=== PATIENT | female | born 1970 | race Caucasian/White ===

== ENCOUNTER 2016-12-07 08:59 | Emergency (ER) | payer OTHER ==
[~2016-12-07] VITALS: Ht 154.9 cm; Wt 59.0 kg
[~2016-12-07 08:59] MED LIST: MELO15TA2 PO; MSIR15 PO; RANI150 PO; [UNRECOGNIZED DRUG - CODE] PO
[2016-12-07 09:02] VITALS: BP 128/95; PULSE 120; RESP 22; TEMP 97.7; O2SAT 99
[2016-12-07 09:11] VITALS: BP 144/73; PULSE 104; RESP 18; TEMP 98.2; O2SAT 100
[2016-12-07] MEDS ORDERED: MOBI15TA PO (09:20)
[2016-12-07] MEDS ORDERED: FENT75DI T-DERMAL (09:20)
[2016-12-07] MEDS ORDERED: DESI100T PO (09:20)
[2016-12-07] MEDS ORDERED: BIRTH CONTROL PO (09:20)
[2016-12-07] MEDS ORDERED: SODIUM CHLORIDE 0.9% FLUSH 10 ML FLUSH IVF PRN (09:30)
--- NOTE | 2016-12-07 09:34 | PD ---
HPI Chief Complaint: Chest Pain Time Seen by Provider: 09:27 Travel History International Travel<30 days: No Contact w/Intl Traveler<30days: No Traveled to known affect area: No History of Present Illness HPI 46-year-old female with history of no significant past medical issues, presents to the ER today because of sudden onset of chest tightness which she measures it a 10 out of 10, felt like squeezing, shortness of breath, and lasted about 10 minutes and went away. She states that she is chest pain-free currently. She states that she had been evaluated for palpitations recently and had negative stress testing and workup including Holter monitor. She denies any previous history of similar chest discomfort. She does not have any previous history of cardiac issues. She does not know any triggers. She denies being more stressed out than usual, new medications, or any significant increase in caffeine intake. 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) Psychiatric: Yes (DEPRESSION) Reproductive: No Respiratory: No Thyroid Disease: No Influenza Vaccination: Yes ?: Not LMP: 11/30/2016 Tubal Ligation: Yes Past Surgical History Abdominal Surgery: No AICD: No Body Medical Devices: LUMBAR HARDWARE Gynecologic Surgery: Yes ( 1999 ) Joint Replacement: No Neurologic Surgery: Yes (LUMBAR FUSION 08/17/09) Pacemaker: No Other Surgery: Yes (SPINAL CORD STIMULATOR 2012) Social History Alcohol Use: Yes (VERY RARELY) Tobacco Use: No Substance Use: No Allergies-Medications (Allergen,Severity, Reaction): Coded Allergies: Celebrex (Verified Allergy, Intermediate, RASH, 12/07/16) Lyrica (Verified Allergy, Intermediate, Rash, 12/07/16) Prilosec (Verified Allergy, Intermediate, RASH, 12/07/16) Reported Meds & Prescriptions Reported Meds & Active Scripts Active Reported [ Control] Unknown Dose PO FLOR Fentanyl Patch 72 HR (Fentanyl) 75 Mcg/Hr Patch 75 Mcg T-DERMAL Q72H Remove old patch when new one placed. Mobic (Meloxicam) 15 Mg Tab 15 Mg PO HS Desipramine (Desipramine HCl) 100 Mg Tab 100 Mg PO HS Review of Systems Except as stated in HPI: all other systems reviewed are Neg Physical Exam Narrative GENERAL: Well-developed middle age white female patient currently not in acute distress. Awake and oriented 3. SKIN: Focused skin assessment warm/dry. HEAD: Atraumatic. Normocephalic. EYES: Pupils equal and round. No scleral icterus. No injection or drainage. ENT: No nasal bleeding or discharge. Mucous membranes pink and moist. NECK: Trachea midline. No JVD. CARDIOVASCULAR: Regular rate and rhythm. No murmur appreciated. Pulses are present and equal bilaterally. RESPIRATORY: No accessory muscle use. Clear to auscultation. Breath sounds equal bilaterally. GASTROINTESTINAL: Abdomen soft, non-tender, nondistended. Hepatic and splenic margins not palpable. MUSCULOSKELETAL: No obvious deformities. No clubbing. No cyanosis. No edema. NEUROLOGICAL: Awake and alert. No obvious cranial nerve deficits. Motor grossly within normal limits. Normal speech. PSYCHIATRIC: Appropriate mood and affect; insight and judgment normal. Data Data Last Documented VS Vital Signs Date Time Temp Pulse Resp B/P Pulse Ox O2 Delivery O2 Flow Rate FiO2 12/07/16 09:11 98.2 104 18 144/73 100 Orders Electrocardiogram (12/07/16:27) Ckmb (Isoenzyme) Profile (12/07/16 09:27) Complete Blood Count With Diff (12/07/16 09:27) Comprehensive Metabolic Panel (12/07/16:27) D-Dimer (12/07/16:27) Magnesium (Mg) (12/07/16:27) Prothrombin Time / Inr (Pt) (12/07/16:27) Act Partial Throm Time (Ptt) (12/07/16:27) Troponin I (12/07/16:27) Chest, Single Ap (12/07/16:27) Ecg Monitoring (12/07/16:27) Bilateral Bp Monitoring (12/07/16:27) Iv Access Insert/Monitor (12/07/16:27) Oximetry (12/07/16:27) Oxygen Administration (12/07/16:27) Sodium Chloride 0.9% Flush (Ns Flush) (12/07/16 09:30) Ed Urine Pregnancytest Poc (12/07/16 09:27) Ckmb (Isoenzyme) Profile (12/07/16 10:25) Troponin I (12/07/16 10:25) Labs Laboratory Tests Test 12/07/16 12/07/16 09:34 11:30 White Blood Count 5.1 TH/MM3 Red Blood Count 4.42 MIL/MM3 Hemoglobin 12.4 GM/DL Hematocrit 37.3 % Mean Corpuscular Volume 84.5 FL Mean Corpuscular Hemoglobin 28.0 PG Mean Corpuscular Hemoglobin 33.2 % Concent Red Cell Distribution Width 13.6 % Platelet Count 215 TH/MM3 Mean Platelet Volume 7.8 FL Neutrophils (%) (Auto) 62.7 % Lymphocytes (%) (Auto) 30.9 % Monocytes (%) (Auto) 5.4 % Eosinophils (%) (Auto) 0.8 % Basophils (%) (Auto) 0.2 % Neutrophils # (Auto) 3.2 TH/MM3 Lymphocytes # (Auto) 1.6 TH/MM3 Monocytes # (Auto) 0.3 TH/MM3 Eosinophils # (Auto) 0.0 TH/MM3 Basophils # (Auto) 0.0 TH/MM3 CBC Comment DIFF FINAL Differential Comment Prothrombin Time 10.1 SEC Prothromb Time International 0.9 RATIO Ratio Activated Partial 25.3 SEC Thromboplast Time D-Dimer Quantitative (PE/DVT) 0.33 MG/L FEU Sodium Level 138 MEQ/L Potassium Level 3.5 MEQ/L Chloride Level 103 MEQ/L Carbon Dioxide Level 25.9 MEQ/L Anion Gap 9 MEQ/L Blood Urea Nitrogen 13 MG/DL Creatinine 0.91 MG/DL Estimat Glomerular Filtration 67 ML/MIN Rate Random Glucose 97 MG/DL Calcium Level 8.5 MG/DL Magnesium Level 2.2 MG/DL Total Bilirubin 0.3 MG/DL Aspartate Amino Transf 26 U/L (AST/SGOT) Alanine Aminotransferase 24 U/L (ALT/SGPT) Alkaline Phosphatase 79 U/L Total Creatine Kinase 73 U/L 64 U/L Troponin I LESS THAN 0.02 LESS THAN 0.02 NG/ML NG/ML Total Protein 7.5 GM/DL Albumin 3.6 GM/DL MDM Medical Decision Making Medical Screen Exam Complete: Yes Emergency Medical Condition: Yes Medical Record Reviewed: Yes Interpretation(s) EKG shows NSR, no ST elevation or depression, and no arrhythmias. No significant T-wave inversions. Laboratory Tests Test 12/07/16 12/07/16 09:34 11:30 Estimat Glomerular Filtration 67 ML/MIN (>89) Rate Troponin I LESS THAN 0.02 LESS THAN 0.02 NG/ML NG/ML (0.02-0.05) (0.02-0.05) Last 24 hours Impressions Chest X-Ray 12/07/16926 Signed Impressions: Service Date/Time: Wednesday, December 07, 2016 09:26 - CONCLUSION: 1. 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 2. Otherwise negative. Lungs are clear. Siddharth Guy MD Differential Diagnosis Chest tightnessdysrhythmias versus ACS versus anxiety attack versus electrolyte abnormalities Narrative Course Chest pain completely resolved in the ER. Lab work and cardiac enzymes initially negative. I have talked to the patient regarding findings and patient states that she has had a full workup done just last month. Second set was done which was also negative. At this point, have talked her regarding findings and have offered to admit her as an observation for further evaluation a chest pain and chest pain center. She is declining at this point stating that she has had a full workup and has a staff forester. She should follow-up with her staff forester for this issue. She should return for any worsening in symptoms. We have talked about the fact that I cannot fully diagnose the cause of this chest pain. Patient states understanding. The plan has been discussed with patient and she states understanding. Diagnosis Primary Impression: Chest pain Disposition: 01 DISCHARGE HOME Condition: Stable Adriana Gonzalez MD Dec 07, 2016 09:34
[2016-12-07 09:49] LABS: AUTOMATED NEUTROPHIL # 3.2 TH/MM3 (1.8-7.7); BASOPHIL % 0.2 % (0.0-2.0); EOSINOPHIL % 0.8 % (0.0-4.0); HEMATOCRIT 37.3 % (35.0-46.0); HEMO FLAGS DIFF FINAL; LYMPH % 30.9 % (9.0-44.0); LYMPHOCYTE # 1.6 TH/MM3 (1.0-4.8); MEAN CELL VOLUME 84.5 FL (80.0-100.0); MEAN CORPUSCULAR HGB CONC 33.2 % (32.0-36.0); MONO % 5.4 % (0.0-8.0); NEUT % 62.7 % (16.0-70.0); PLATELET COUNT 215 TH/MM3 (150-450); RED BLOOD COUNT 4.42 MIL/MM3 (4.00-5.30); RED CELL DISTRIBUTION WIDTH 13.6 % (11.6-17.2); WHITE BLOOD COUNT 5.1 TH/MM3 (4.0-11.0)
--- NOTE | 2016-12-07 10:00 | RADRPT ---
EXAM DATE/TIME: 12/07/2016 09:26 [facility] COMPARISON: No previous studies available for comparison. INDICATIONS : Chest pain with shortness of breath. MEDICAL HISTORY : None. SURGICAL HISTORY : None. ENCOUNTER: Initial ACUITY: 1 day PAIN SCORE: 4/10 LOCATION: Bilateral chest FINDINGS: A single view of the chest demonstrates the lungs to be symmetrically aerated without evidence of mas s, infiltrate or effusion. The cardiomediastinal contours are unremarkable. Osseous structures are intact with an osseous bridge between the first and second ribs anteriorly on the right. CONCLUSION: 1. 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 2. Otherwise negative. Lungs are clear. Siddharth Guy MD on December 07, 2016 at 9:57 Board Certified Radiologist. This report was verified electronically.
[2016-12-07 10:05] LABS: APTT (PATIENT) 25.3 SEC (24.3-30.1); INTERNATIONAL NORMALIZED RATIO 0.9 RATIO; PROTHROMBIN TIME - PATIENT 10.1 SEC (9.8-11.6)
[2016-12-07 10:06] LABS: ALT (GPT) 24 U/L (10-53); ANION GAP 9 MEQ/L (5-15); AST (GOT) 26 U/L (15-37); BICARBONATE 25.9 MEQ/L (21.0-32.0); BLOOD UREA NITROGEN 13 MG/DL (7-18); CHLORIDE 103 MEQ/L (98-107); GLOMERULAR FILTRATION RATE 67 ML/MIN (>89); MAGNESIUM 2.2 MG/DL (1.5-2.5); POTASSIUM 3.5 MEQ/L (3.5-5.1); SODIUM (NA) 138 MEQ/L (136-145)
[2016-12-07 10:11] LABS: ALKALINE PHOSPHATASE 79 U/L (45-117); TOTAL BILIRUBIN ADULT 0.3 MG/DL (0.2-1.0)
[2016-12-07 10:12] LABS: CREATINE KINASE 73 U/L (26-192)
[2016-12-07 12:11] LABS: CREATINE KINASE 64 U/L (26-192)
--- NOTE | 2016-12-07 18:50 | EKG ---
Date Performed: 12/07/2016 Time Performed: 09:16:37 PTAGE: 46 years EKG: SINUS TACHYCARDIA ABNORMAL RHYTHM ECG INTERPRETATION BASED ON A DEFAULT AGE OF 40 YEARS Com pared to prior tracing no significant change PREVIOUS TRACING : 10/29/2012 08.14 DOCTOR: Jaison Wing Interpretating Date/Time 12/07/2016 18:49:02
== END 2016-12-07 13:27 | disposition home or self-care (01) ==
LOC: NEPE 08:59
DX: R07.9 Chest pain, unspecified (principal); K21.9 Gastro-esophageal reflux disease without esophagitis; R94.31 Abnormal electrocardiogram [ECG] [EKG]
CPT/HCPCS: 71010; 80053; 82550; 83735; 84484; 84703; 85025; 85379; 85610; 85730; 93005

== ENCOUNTER → 2017-01-03 | Outpatient (CLI) | payer OTHER ==
[~2017-01-03] MED LIST changes: +BIRTH CONTROL PO; +DESI100T PO; +FENT75DI T-DERMAL; -MELO15TA2 PO; +MOBI15TA PO; -MSIR15 PO; -RANI150 PO; -[UNRECOGNIZED DRUG - CODE] PO
[2017-01-03 10:26] LABS: BETA HCG QUANT LESS THAN 1 MIU/ML (0-5)
== END ==
LOC: CLAB 09:10
PROVIDERS: ATTEND Nuclear Medicine Nuclear Cardiology
DX: R07.89 Other chest pain (principal); Z79.899 Other long term (current) drug therapy
CPT/HCPCS: 36415; 84702

== ENCOUNTER → 2017-01-23 | Outpatient (CLI) | payer OTHER ==
[2017-01-23 07:42] LABS: AUTOMATED NEUTROPHIL # 1.9 TH/MM3 (1.8-7.7); BASOPHIL % 0.6 % (0.0-2.0); EOSINOPHIL # 0.1 TH/MM3 (0-0.4); EOSINOPHIL % 2.5 % (0.0-4.0); HEMO FLAGS DIFF FINAL; LYMPH % 42.2 % (9.0-44.0); LYMPHOCYTE # 1.8 TH/MM3 (1.0-4.8); MEAN CELL VOLUME 85.4 FL (80.0-100.0); MEAN CORPUSCULAR HGB CONC 32.8 % (32.0-36.0); MONO % 9.7 % (0.0-8.0); PLATELET COUNT 249 TH/MM3 (150-450); RED BLOOD COUNT 4.21 MIL/MM3 (4.00-5.30); WHITE BLOOD COUNT 4.3 TH/MM3 (4.0-11.0)
[2017-01-23 08:04] LABS: ANION GAP 8 MEQ/L (5-15); AST (GOT) 10 U/L (15-37); BLOOD UREA NITROGEN 12 MG/DL (7-18); CHLORIDE 104 MEQ/L (98-107); GLOMERULAR FILTRATION RATE 68 ML/MIN (>89); GLUCOSE,FASTING 89 MG/DL (74-99); POTASSIUM 3.4 MEQ/L (3.5-5.1); SODIUM (NA) 139 MEQ/L (136-145)
[2017-01-23 08:05] LABS: ALT (GPT) 19 U/L (10-53)
[2017-01-23 08:07] LABS: ALKALINE PHOSPHATASE 56 U/L (45-117); LDL CHOLESTEROL 156 MG/DL (0-99); TOTAL BILIRUBIN ADULT 0.3 MG/DL (0.2-1.0)
== END ==
LOC: CLAB 07:20
PROVIDERS: ATTEND Family Medicine
DX: R07.89 Other chest pain (principal); E78.5 Hyperlipidemia, unspecified
CPT/HCPCS: 36415; 80053; 80061; 85025

== ENCOUNTER → 2017-02-05 | Outpatient (CLI) | payer OTHER | LOC: CLAB 15:02 | PROVIDERS: ATTEND Family Medicine | DX: R07.89 Other chest pain (principal) | CPT/HCPCS: 82272 ==

== ENCOUNTER → 2017-03-21 | Outpatient (CLI) | payer OTHER ==
[~2017-03-21] VITALS: Ht 154.9 cm; Wt 59.3 kg
[~2017-03-21] MED LIST changes: -BIRTH CONTROL PO; +CHLORHEXIDINE GLUCONATE 2 % 1 PACK (2 CLOTHS) TOPICAL PRN; +INSULIN HUMAN REGULAR 1,000 UNITS/10 ML VIAL SQ PRN; +LACTATED RINGER'S 1000 ML IV PRN; +LEVO1TAB PO; +METOPROLOL TARTRATE 25 MG TAB PO PRN; +POVIDONE IODINE 5% (ANTISEPSIS KIT) 4 APPLICATIONS EACH NARE PRN; +PROPOFOL 200 MG/20 ML AMP IV ONE; +SODIUM CHLORID 0.9% 500 ML IV PRN; +ZANT150T2 PO
[2017-03-21 10:24] VITALS: BP 118/79; PULSE 81; RESP 20; TEMP 98.6; O2SAT 100
[2017-03-21 12:16] VITALS: TEMP 97.6
--- NOTE | 2017-03-21 12:22 | GIPROC ---
[facility] [address] [facility]. [facility], [address] EGD PROCEDURE REPORT EXAM DATE: 03/21/2017 PATIENT NAME: Talia Thomas MR#: [id number] BIRTHDATE: 1970 STATUS: outpatient ATTENDING: Sun Wan MD VISIT ID: [id number] KENNEL HELPER: Monika Matt Dan ORDER #: [id number] INDICATIONS: The patient is a 46 yr old female here for an EGD due to history of esophageal reflux and atypical chest pain. PROCEDURE PERFORMED: EGD w/ biopsy MEDICATIONS: None and Per Anesthesia. ASA CLASS: Class I PHYSICAL EXAM: normal CONSENT: The patient understands the risks and benefits of the procedure and understands that these risks include, but are not limited to: sedation, allergic reaction, infection, perforation and/or bleeding. Alternative means of evaluation and treatment include, among others: physical exam, x-rays, and/or surgical intervention. The patient elects to proceed with this endoscopic procedure. DESCRIPTION OF PROCEDURE: for proper function. Hand hygiene and appropriate measures for infection prevention was taken. After the risks, benefits and alternatives of the procedure were thoroughly explained, Informed consent was verified, confirmed and timeout was successfully executed by the treatment team. The Helicomm [id number] endoscope was introduced through the mouth and advanced to the second portion of the duodenum. The instrument was slowly withdrawn as the mucosa was fully examined. ESOPHAGUS: The mucosa of the esophagus appeared normal. A biopsy was performed using cold forceps. Sample sent for histology. Sample obtained for evaluation of eosinophilic esophagitis. STOMACH: There was mild gastritis in the gastric antrum. Multiple biopsies were performed using cold forceps. Sample obtained for helicobacter pylori testing. DUODENUM: The duodenal mucosa appeared normal in the duodenal bulb and 2nd part duodenum. Retroflexed views revealed a hiatal hernia The gastroscope was then slowly withdrawn and removed. COMPLICATIONS: There were no complications. IMPRESSIONS: 1. The esophagus appeared normal; biopsy was performed 2. There was mild gastritis in the gastric antrum; multiple biopsies were performed 3. Normal duodenal mucosa in the duodenal bulb and 2nd part duodenum 4. Retroflexed views revealed a hiatal hernia RECOMMENDATIONS: 1. Await biopsy results. Biopsy results will not be ready for 7-10 days. If you don't hear from us in two weeks, call our office for biopsy results. 2. Anti-reflux regimen 3. Continue PPI 4. Avoid NSAIDS PATIENT CONDITION: stable DISPOSITION: Home REPEAT EXAM: NONE Sun Wan MD eSigned: Sun Wan MD 03/21/2017 12:21 PM cc: PATIENT NAME: Talia Thomas MR#: [id number]
[2017-03-21 12:35] VITALS: BP 113/66; PULSE 71; RESP 18
== END ==
LOC: HEND 09:55
PROVIDERS: ATTEND Internal Medicine Gastroenterology
DX: K29.50 Unspecified chronic gastritis without bleeding (principal); K44.9 Diaphragmatic hernia without obstruction or gangrene; R07.89 Other chest pain
CPT/HCPCS: 88305; 88312

== ENCOUNTER → 2017-06-12 | Outpatient (CLI) | payer OTHER ==
[~2017-06-12] MED LIST changes: -CHLORHEXIDINE GLUCONATE 2 % 1 PACK (2 CLOTHS) TOPICAL PRN; -INSULIN HUMAN REGULAR 1,000 UNITS/10 ML VIAL SQ PRN; -LACTATED RINGER'S 1000 ML IV PRN; -METOPROLOL TARTRATE 25 MG TAB PO PRN; -POVIDONE IODINE 5% (ANTISEPSIS KIT) 4 APPLICATIONS EACH NARE PRN; -PROPOFOL 200 MG/20 ML AMP IV ONE; -SODIUM CHLORID 0.9% 500 ML IV PRN
[2017-06-12 09:31] LABS: ALBUMIN 3.4 GM/DL (3.4-5.0); AST (GOT) 11 U/L (15-37); BICARBONATE 25.7 MEQ/L (21.0-32.0); BLOOD UREA NITROGEN 14 MG/DL (7-18); CALCIUM 8.6 MG/DL (8.5-10.1); CHLORIDE 105 MEQ/L (98-107); CREATININE 0.87 MG/DL (0.50-1.00); GLOMERULAR FILTRATION RATE 70 ML/MIN (>89); GLUCOSE,FASTING 91 MG/DL (74-99); SODIUM (NA) 137 MEQ/L (136-145)
[2017-06-12 09:32] LABS: ALT (GPT) 15 U/L (10-53)
[2017-06-12 09:34] LABS: ALKALINE PHOSPHATASE 61 U/L (45-117); TOTAL BILIRUBIN ADULT 0.2 MG/DL (0.2-1.0); TOTAL PROTEIN 7.1 GM/DL (6.4-8.2)
== END ==
LOC: CLAB 08:42
PROVIDERS: ATTEND Family Medicine
DX: K21.9 Gastro-esophageal reflux disease without esophagitis (principal); E78.5 Hyperlipidemia, unspecified; E78.6 Lipoprotein deficiency
CPT/HCPCS: 36415; 80053

== ENCOUNTER 2017-07-17 10:05 | Emergency (ER) | payer OTHER ==
[~2017-07-17] VITALS: Ht 154.9 cm; Wt 59.0 kg
[2017-07-17 10:06] VITALS: BP 127/71; PULSE 132; RESP 20; TEMP 97.7; O2SAT 100
[2017-07-17] MEDS ORDERED: SODIUM CHLOR 0.9% 1000 ML INJ 1,000 ML IV SCH (10:26)
[2017-07-17] MEDS ORDERED: ONDANSETRON HCL 4 MG/2 ML VIAL IVP ONE (10:30)
--- NOTE | 2017-07-17 10:49 | PD ---
HPI . Abdominal pain Chief Complaint: Abdominal Pain Time Seen by Provider: 10:19 Travel History International Travel<30 days: No Contact w/Intl Traveler<30days: No Traveled to known affect area: No History of Present Illness HPI 47 year old female presents to the emergency department for evaluation of an exacerbation of right sided abdominal pain x 2 days. Patient has had intermittent abdominal pain for the last several months. Patient had an ultrasound to evaluated her gallbladder 2 weeks ago at [facility]. She is unsure of the results at this time. Patient was sent home from work on Saturday with chest pain and abdominal pain. Patient denies any fever, chills, malaise. Patient denies any nausea, vomiting or diarrhea, despite the right sided abdominal pain being persistent. Patient's only other major medical history is hyperlipemia and chronic back pain. PFSH Past Medical History Blood Disorders: No Cancer: No Cardiovascular Problems: No Diabetes: No Endocrine: No Gastrointestinal Disorders: Yes (GERD) GERD: Yes Genitourinary: No Headaches: Yes Hepatitis: No Hiatal Hernia: No Immune Disorder: No Musculoskeletal: Yes (ARTHRITIS, BACK PAIN) Neurologic: Yes (NERVE DAMAGE TO LOWER BACK) Psychiatric: Yes (DEPRESSION) Reproductive: No Respiratory: No Thyroid Disease: No ?: Not LMP: 07/12/17 Tubal Ligation: Yes Past Surgical History Abdominal Surgery: No AICD: No Body Medical Devices: LUMBAR HARDWARE Gynecologic Surgery: Yes ( 1999 ) Joint Replacement: No Neurologic Surgery: Yes (LUMBAR FUSION 08/17/09) Pacemaker: No Other Surgery: Yes (SPINAL CORD STIMULATOR 2012) Social History Alcohol Use: Yes (VERY RARELY) Tobacco Use: No Substance Use: No Allergies-Medications (Allergen,Severity, Reaction): Coded Allergies: celecoxib (Unverified Allergy, Intermediate, RASH, 04/02/17) omeprazole (Unverified Allergy, Intermediate, RASH, 04/02/17) pregabalin (Unverified Allergy, Intermediate, Rash, 04/02/17) gabapentin (Unverified Adverse Reaction, Mild, fatigue, 04/02/17) Reported Meds & Prescriptions Reported Meds & Active Scripts Active Reported Falmina (Levonorgestrel-Ethinyl Estradiol) 0.1-20 mg-mcg Tab 1 Tab PO DAILY Zantac (Ranitidine HCl) 150 Mg Tab 150 Mg PO BID Fentanyl Patch 72 HR (Fentanyl) 75 Mcg/Hr Patch 75 Mcg T-DERMAL Q72H Remove old patch when new one placed. Mobic (Meloxicam) 15 Mg Tab 15 Mg PO HS Desipramine (Desipramine HCl) 100 Mg Tab 100 Mg PO HS Review of Systems Except as stated in HPI: all other systems reviewed are Neg Physical Exam Narrative GENERAL: Well-nourished, well-developed 47 year old female patient in no acute distress. Nontoxic appearing. SKIN: Focused skin assessment warm/dry. HEAD: Normocephalic. Atraumatic. EYES: No scleral icterus. No injection or drainage. NECK: Supple, trachea midline. No JVD or lymphadenopathy. CARDIOVASCULAR: Regular rate and rhythm without murmurs, gallops, or rubs. RESPIRATORY: Breath sounds equal bilaterally. No accessory muscle use. GASTROINTESTINAL: Abdomen soft, right-sided abdominal tenderness with palpation , abdomen nondistended. MUSCULOSKELETAL: No cyanosis, or edema. BACK: Nontender without obvious deformity. No CVA tenderness. Data Data Last Documented VS Vital Signs Date Time Temp Pulse Resp B/P (MAP) Pulse Ox O2 Delivery O2 Flow Rate FiO2 07/17/17 13:01 95 17 117/60 (79) 100 Room Air 07/17/17 10:06 97.7 Orders Orders Complete Blood Count With Diff (07/17/17 10:26) Comprehensive Metabolic Panel (07/17/17 10:26) Lipase (07/17/17 10:26) Urinalysis - C+S If Indicated (07/17/17 10:26) Ct Abd/Pel W Iv Contrast(Rout) (07/17/17 10:26) Iv Access Insert/Monitor (07/17/17 10:26) Ecg Monitoring (07/17/17 10:26) NPO (07/17/17 10:26) Ondansetron Inj (Zofran Inj) (07/17/17 10:30) Sodium Chlor 0.9% 1000 Ml Inj (Ns 1000 M (07/17/17 10:26) Ed Urine Pregnancytest Poc (07/17/17 10:26) Electrocardiogram (07/17/17 10:30) Creatine Kinase (Cpk) (07/17/17 10:30) Troponin I (07/17/17 10:30) Urine Culture (07/17/17 10:50) Iohexol 350 Inj (Omnipaque 350 Inj) (07/17/17 12:42) Labs Laboratory Tests Test 07/17/17 10:39 07/17/17 10:50 White Blood Count 8.4 TH/MM3 Red Blood Count 4.71 MIL/MM3 Hemoglobin 12.4 GM/DL Hematocrit 37.9 % Mean Corpuscular Volume 80.5 FL Mean Corpuscular Hemoglobin 26.3 PG Mean Corpuscular Hemoglobin Concent 32.7 % Red Cell Distribution Width 16.1 % Platelet Count 252 TH/MM3 Mean Platelet Volume 8.0 FL Neutrophils (%) (Auto) 77.6 % Lymphocytes (%) (Auto) 14.3 % Monocytes (%) (Auto) 6.1 % Eosinophils (%) (Auto) 1.9 % Basophils (%) (Auto) 0.1 % Neutrophils # (Auto) 6.5 TH/MM3 Lymphocytes # (Auto) 1.2 TH/MM3 Monocytes # (Auto) 0.5 TH/MM3 Eosinophils # (Auto) 0.2 TH/MM3 Basophils # (Auto) 0.0 TH/MM3 CBC Comment DIFF FINAL Differential Comment Blood Urea Nitrogen 12 MG/DL Creatinine 1.02 MG/DL Random Glucose 102 MG/DL Total Protein 8.6 GM/DL Albumin 3.8 GM/DL Calcium Level 8.9 MG/DL Alkaline Phosphatase 197 U/L Aspartate Amino Transf (AST/SGOT) 37 U/L Alanine Aminotransferase (ALT/SGPT) 105 U/L Total Bilirubin 0.7 MG/DL Sodium Level 136 MEQ/L Potassium Level 3.4 MEQ/L Chloride Level 102 MEQ/L Carbon Dioxide Level 27.6 MEQ/L Anion Gap 6 MEQ/L Estimat Glomerular Filtration Rate 58 ML/MIN Total Creatine Kinase 34 U/L Troponin I LESS THAN 0.02 NG/ML Lipase 87 U/L Urine Color DARK-BROWN Urine Turbidity CLOUDY Urine pH 6.0 Urine Specific [place] 1.035 Urine Protein 100 mg/dL Urine Glucose (UA) 70 mg/dL Urine Ketones 10 mg/dL Urine Occult Blood MOD Urine Nitrite NEG Urine Bilirubin NEG Urine Urobilinogen 4.0 MG/DL Urine Leukocyte Esterase LARGE Urine RBC 25 /hpf Urine WBC /hpf Urine Squamous Epithelial Cells 20 /hpf Urine Bacteria OCC /hpf Urine Hyaline Casts 7 /lpf Urine Mucus MANY /lpf Microscopic Urinalysis Comment CULTURE INDICATED MDM Medical Decision Making Medical Screen Exam Complete: Yes Emergency Medical Condition: Yes Differential Diagnosis Differential diagnoses include but not limited to cholecystitis, gastroenteritis , appendicitis, cholelithiasis Narrative Course 47-year-old female presents emergency department for evaluation of right-sided abdominal pain 2 days. Patient states she had chest pain on Saturday but the pain has resolved subsequently. IV obtained and blood work sent to the lab. UA obtained and sent to lab. EKG obtained. Abd CT ordered. US from [facility] obtained and reviewed. Jimena Clark NP assumes care of this patient. Please see her documentation for further details and disposition. Dipika Torres Jul 17, 2017 10:49
[2017-07-17 11:12] LABS: AUTOMATED NEUTROPHIL # 6.5 TH/MM3 (1.8-7.7); BASOPHIL % 0.1 % (0.0-2.0); EOSINOPHIL # 0.2 TH/MM3 (0-0.4); EOSINOPHIL % 1.9 % (0.0-4.0); HEMATOCRIT 37.9 % (35.0-46.0); HEMO FLAGS DIFF FINAL; LYMPH % 14.3 % (9.0-44.0); LYMPHOCYTE # 1.2 TH/MM3 (1.0-4.8); MEAN CELL VOLUME 80.5 FL (80.0-100.0); MEAN CORPUSCULAR HEMOGLOBIN 26.3 PG (27.0-34.0); MEAN CORPUSCULAR HGB CONC 32.7 % (32.0-36.0); MONO % 6.1 % (0.0-8.0); NEUT % 77.6 % (16.0-70.0); PLATELET COUNT 252 TH/MM3 (150-450); RED BLOOD COUNT 4.71 MIL/MM3 (4.00-5.30); RED CELL DISTRIBUTION WIDTH 16.1 % (11.6-17.2); WHITE BLOOD COUNT 8.4 TH/MM3 (4.0-11.0)
[2017-07-17 11:26] LABS: BLOOD, URINE MOD (NEG); COMMENT (UR) CULTURE INDICATED; CULTURE IF INDICATED CULTURE INDICATED; GLUCOSE,URINE 70 mg/dL (NEG); HYALINE CAST, URINE 7 /lpf (RARE); KETONE, URINE 10 mg/dL (NEG); MUCUS URINE MANY /lpf (OCC); NITRITE,URINE NEG (NEG); SQUAMOUS EPITHELIAL CELL URINE 20 /hpf (0-5); URINE COLOR DARK-BROWN (YELLW/STRAW)
[2017-07-17 11:27] LABS: BACTERIA, URINE OCC /hpf
[2017-07-17 11:30] LABS: ANION GAP 6 MEQ/L (5-15); AST (GOT) 37 U/L (15-37); BICARBONATE 27.6 MEQ/L (21.0-32.0); BLOOD UREA NITROGEN 12 MG/DL (7-18); CHLORIDE 102 MEQ/L (98-107); GLOMERULAR FILTRATION RATE 58 ML/MIN (>89); POTASSIUM 3.4 MEQ/L (3.5-5.1); SODIUM (NA) 136 MEQ/L (136-145)
[2017-07-17 11:31] LABS: ALT (GPT) 105 U/L (10-53)
[2017-07-17 11:33] LABS: ALKALINE PHOSPHATASE 197 U/L (45-117); TOTAL BILIRUBIN ADULT 0.7 MG/DL (0.2-1.0)
[2017-07-17 11:37] LABS: CREATINE KINASE 34 U/L (26-192)
[2017-07-17 12:17] VITALS: BP 100/56; PULSE 71; RESP 17; O2SAT 100
--- NOTE | 2017-07-17 12:19 | PD ---
Physical Exam Time Seen by Provider: 12:18 Narrative 1219: I assumed patient care at this time. Report received from JANNA Good. See her note for initial assessment and care. Data Data Last Documented VS Vital Signs Date Time Temp Pulse Resp B/P (MAP) Pulse Ox O2 Delivery O2 Flow Rate FiO2 07/17/17 15:56 89 17 107/67 (80) 100 Room Air 07/17/17 10:06 97.7 Orders Orders Complete Blood Count With Diff (07/17/17 10:26) Comprehensive Metabolic Panel (07/17/17 10:26) Lipase (07/17/17 10:26) Urinalysis - C+S If Indicated (07/17/17 10:26) Ct Abd/Pel W Iv Contrast(Rout) (07/17/17 10:26) Iv Access Insert/Monitor (07/17/17 10:26) Ecg Monitoring (07/17/17 10:26) NPO (07/17/17 10:26) Ondansetron Inj (Zofran Inj) (07/17/17 10:30) Sodium Chlor 0.9% 1000 Ml Inj (Ns 1000 M (07/17/17 10:26) Ed Urine Pregnancytest Poc (07/17/17 10:26) Electrocardiogram (07/17/17 10:30) Creatine Kinase (Cpk) (07/17/17 10:30) Troponin I (07/17/17 10:30) Urine Culture (07/17/17 10:50) Iohexol 350 Inj (Omnipaque 350 Inj) (07/17/17 12:42) Morphine Inj (Morphine Inj) (07/17/17 16:00) Piperacil-Tazo 3.375 Gm Premix (Zosyn 3. (07/17/17 16:15) Ed Discharge Order (07/17/17 16:16) Labs Laboratory Tests Test 07/17/17 10:39 07/17/17 10:50 White Blood Count 8.4 TH/MM3 Red Blood Count 4.71 MIL/MM3 Hemoglobin 12.4 GM/DL Hematocrit 37.9 % Mean Corpuscular Volume 80.5 FL Mean Corpuscular Hemoglobin 26.3 PG Mean Corpuscular Hemoglobin Concent 32.7 % Red Cell Distribution Width 16.1 % Platelet Count 252 TH/MM3 Mean Platelet Volume 8.0 FL Neutrophils (%) (Auto) 77.6 % Lymphocytes (%) (Auto) 14.3 % Monocytes (%) (Auto) 6.1 % Eosinophils (%) (Auto) 1.9 % Basophils (%) (Auto) 0.1 % Neutrophils # (Auto) 6.5 TH/MM3 Lymphocytes # (Auto) 1.2 TH/MM3 Monocytes # (Auto) 0.5 TH/MM3 Eosinophils # (Auto) 0.2 TH/MM3 Basophils # (Auto) 0.0 TH/MM3 CBC Comment DIFF FINAL Differential Comment Blood Urea Nitrogen 12 MG/DL Creatinine 1.02 MG/DL Random Glucose 102 MG/DL Total Protein 8.6 GM/DL Albumin 3.8 GM/DL Calcium Level 8.9 MG/DL Alkaline Phosphatase 197 U/L Aspartate Amino Transf (AST/SGOT) 37 U/L Alanine Aminotransferase (ALT/SGPT) 105 U/L Total Bilirubin 0.7 MG/DL Sodium Level 136 MEQ/L Potassium Level 3.4 MEQ/L Chloride Level 102 MEQ/L Carbon Dioxide Level 27.6 MEQ/L Anion Gap 6 MEQ/L Estimat Glomerular Filtration Rate 58 ML/MIN Total Creatine Kinase 34 U/L Troponin I LESS THAN 0.02 NG/ML Lipase 87 U/L Urine Color DARK-BROWN Urine Turbidity CLOUDY Urine pH 6.0 Urine Specific [place] 1.035 Urine Protein 100 mg/dL Urine Glucose (UA) 70 mg/dL Urine Ketones 10 mg/dL Urine Occult Blood MOD Urine Nitrite NEG Urine Bilirubin NEG Urine Urobilinogen 4.0 MG/DL Urine Leukocyte Esterase LARGE Urine RBC 25 /hpf Urine WBC /hpf Urine Squamous Epithelial Cells 20 /hpf Urine Bacteria OCC /hpf Urine Hyaline Casts 7 /lpf Urine Mucus MANY /lpf Microscopic Urinalysis Comment CULTURE INDICATED MDM Supervised Visit with MARCO ANTONIO: Yes Narrative Course 1219: Urinalysis was signs of infection. CBC, CMP unremarkable. Troponin less than 0.02. Total CK 34. Patient had an ultrasound of the abdomen done at [facility] on July 04 which concluded cholelithiasis with multiple echogenic gallstones and mild gallbladder wall thickening; there is no evidence of biliary obstruction; liver is mildly prominent in size with no focal abnormality. The patient will be provided a copy of her ultrasound report from [facility]. CT abd/pelvis pending. 1300: CT abdomen/pelvis concludes: Abdomen/Pelvis CT 11/29/17 1026 Signed Impressions: Service Date/Time: Monday, July 17, 2017 12:26 - CONCLUSION: 1. Distended gallbladder with generalized wall thickening and pericholecystic fluid characteristics of acute cholecystitis. 2. No evidence of intrahepatic biliary duct or common bile duct distention. 3. No evidence of pancreatic mass. Babak Garrido MD CT findings discussed with the patient. 1541: Call out to general surgeon. 1551: Dr. Berkowitz spoke with Dr. Pritchard, general surgeon, and he recommended to administer Zosyn IV and for the patient to follow up outpatient. Zosyn ordered and administered in the ER. The patient was provided to Dr. Pritchard's information for follow-up. Instructed patient to call and make an appointment and she verbalized understanding and agreement. Patient sees pain management for chronic back pain and has fentanyl patch in place. Augmentin prescribed for home. Instructed patient to follow up with primary care provider. Patient verbalizes understanding and agreement with treatment plan. Patient is medically cleared and stable for discharge. Discussed reasons to return to the emergency department. Patient agrees with treatment plan. The patients vital signs are stable and the patient is stable for outpatient follow- up and treatment. Patient discharged home, stable and in no acute distress. Diagnosis Primary Impression: Acute cholecystitis Additional Impression: Urinary tract infection Qualified Codes: N39.0 - Urinary tract infection, site not specified Referrals: Blade Pritchard MD General Surgeon Primary Care Physician Patient Instructions: Biliary Colic (ED), General Instructions, Urinary Tract Infection in Women (ED) Additional Instruction: Antibiotics as prescribed Follow-up with Dr. Pritchard, general surgeon; his contact information is in her discharge instructions; call his office to make an appointment for follow-up Or follow up with general surgeon of choice Follow-up with primary care provider Return to the emergency department immediately with worsening of symptoms Med/Other Pt SpecificInfo: Prescription(s) given Scripts Amoxicillin-Clavulanate (Augmentin) 875-125 Mg Tab 1 TAB PO BID for Infection for 10 Days, #20 TAB 0 Refills Prov: Gia Clark 07/17/17 Disposition: 01 DISCHARGE HOME Condition: Stable Gia Clark Jul 17, 2017 12:19
--- NOTE | 2017-07-17 12:40 | EKG ---
Date Performed: 07/17/2017 Time Performed: 11:35:01 PTAGE: 47 years EKG: Sinus rhythm POSSIBLE LEFT ATRIAL ENLARGEMENT POSSIBLE RIGHT VENTRICULAR CONDUCTION DELAY BORDERLINE ECG INTERPRE TATION BASED ON A DEFAULT AGE OF 41 YEARS No significant change from prior electrocardiogram. DOCTOR: John Lewis Interpretating Date/Time 07/17/2017 12:38:54
[2017-07-17] MEDS ORDERED: IOHEXOL 350 MG/ML 10 ML VIAL (for RAD DIAG) IVCONTRAST ONE (12:42)
--- NOTE | 2017-07-17 12:52 | RADRPT ---
EXAM DATE/TIME: 07/17/2017 12:26 [facility] COMPARISON: No previous studies available for comparison. INDICATIONS : Right sided abdominal pain since Sourav. IV CONTRAST: 86 cc Omnipaque 350 (iohexol) IV ORAL CONTRAST: No oral contrast ingested. RADIATION DOSE: 4.64 CTDIvol (mGy) MEDICAL HISTORY : None SURGICAL HISTORY : section. Tubal ligation. ENCOUNTER: Initial ACUITY: 1 day PAIN SCALE: 5/10 LOCATION: Right abdomen TECHNIQUE: Volumetric scanning of the abdomen and pelvis was performed. Using automated exposure control and ad justment of the mA and/or kV according to patient size, radiation dose was kept as low as reasonably achievable to obtain optimal diagnostic quality images. DICOM format image data is available electro nically for review and comparison. FINDINGS: LOWER LUNGS: The visualized lower lungs are clear. LIVER: Homogeneous density without lesion. There is no dilation of the biliary tree. The gallbladder is distended and demonstrates diffuse wall thickening measuring 6-7 mm in thickn ess. There is significant surrounding fluid. There are no calcified gallstones. SPLEEN: Normal size without lesion. PANCREAS: Within normal limits. KIDNEYS: Normal in size and shape. There is no mass, stone or hydronephrosis. ADRENAL GLANDS: Within normal limits. VASCULAR: There is no aortic aneurysm. BOWEL/MESENTERY: The stomach, small bowel, and colon demonstrate no acute abnormality. There is no free intraperitone al air or fluid. ABDOMINAL WALL: Within normal limits. RETROPERITONEUM: There is no lymphadenopathy. BLADDER: No wall thickening or mass. REPRODUCTIVE: Within normal limits. INGUINAL: There is no lymphadenopathy or hernia. MUSCULOSKELETAL: Left-sided fusion apparatus is identified on the left at the lumbosacral junction. Dorsal column stim ulator is identified in the mid to lower thoracic spine. CONCLUSION: 1. Distended gallbladder with generalized wall thickening and pericholecystic fluid characteristics o f acute cholecystitis. 2. No evidence of intrahepatic biliary duct or common bile duct distention. 3. No evidence of pancreatic mass. Babak Garrido MD on July 17, 2017 at 12:46 Board Certified Radiologist. This report was verified electronically.
[2017-07-17 13:01] VITALS: BP 117/60; PULSE 95; RESP 17; O2SAT 100
[2017-07-17 15:56] VITALS: BP 107/67; PULSE 89; RESP 17; O2SAT 100
[2017-07-17] MEDS ORDERED: MORPHINE SULFATE 2 MG/ML INJ IV PUSH ONE (16:00)
[2017-07-17] MEDS ORDERED: AUGM875T3 PO (16:09)
[2017-07-17] MEDS ORDERED: PIPERACIL-TAZO 3.375 GM PREMIX 50 ML IV ONE (16:15)
--- NOTE | 2017-07-17 16:46 | PD ---
Physical Exam Date Seen by Provider: Jul 17, 2017 Time Seen by Provider: 14:00 Narrative I, Dr. Gonzalez, have reviewed the advance practice practitioner's documentation and am in agreement, met with the patient face to face, made the diagnosis, and the medical decision making was done by me. *My assessment and Findings: Patient seen and evaluated with PA, please see PA notes for further details. She has had several weeks' history of right upper quadrant abdominal pains, had initial ultrasound done 2 weeks ago twin [facility] which did not show any signs of acute cholecystitis, presenting with worsening of pain in the right upper quadrant, tender to palpation. Laboratory Tests Test 07/17/17 10:39 07/17/17 10:50 Mean Corpuscular Hemoglobin 26.3 PG (27.0-34.0) Neutrophils (%) (Auto) 77.6 % (16.0-70.0) Creatinine 1.02 MG/DL (0.50-1.00) Total Protein 8.6 GM/DL (6.4-8.2) Alkaline Phosphatase 197 U/L (45-117) Alanine Aminotransferase (ALT/SGPT) 105 U/L (10-53) Potassium Level 3.4 MEQ/L (3.5-5.1) Estimat Glomerular Filtration Rate 58 ML/MIN (>89) Troponin I LESS THAN 0.02 NG/ML Urine Color DARK-BROWN (YELLW/STRAW) Urine Turbidity CLOUDY (CLEAR) Urine Protein 100 mg/dL (NEG-TRACE) Urine Glucose (UA) 70 mg/dL (NEG) Urine Ketones 10 mg/dL (NEG) Urine Occult Blood MOD (NEG) Urine Urobilinogen 4.0 MG/DL (LESS THAN Urine Leukocyte Esterase LARGE (NEG) Urine RBC 25 /hpf (0-3) Urine Bacteria OCC /hpf (NONE) Urine Mucus MANY /lpf (OCC) Last 24 hours Impressions Abdomen/Pelvis CT 07/17/17 1026 Signed Impressions: Service Date/Time: Monday, July 17, 2017 12:26 - CONCLUSION: 1. Distended gallbladder with generalized wall thickening and pericholecystic fluid characteristics of acute cholecystitis. 2. No evidence of intrahepatic biliary duct or common bile duct distention. 3. No evidence of pancreatic mass. Babak Garrido MD Lab work shows significant UTI with mild LFT abnormalities. CAT scan shows a distended gallbladder with generalized thickening and her cholecystic fluid concerning for acute cholecystitis. There is no significant leukocytosis at this time. Case was discussed with Dr. Pritchard of general surgery who states that if the patient's pain can be controlled, she can be released with close outpatient follow-up to his office for urgent surgical treatment. He states that he would not be able to do any surgeries on her until at least Saturday. He also states that if the patient is not able to tolerate the pain, she can be admitted medically and he can take a look and surgically treated her, likely on Saturday also. He is okay with me giving her Zosyn for this issue initially. I have discussed the findings with the patient and my discussion with Dr. Pritchard and she states that she would prefer not to stay in the hospital, would prefer to be released with follow-up to Dr. Pritchard as an outpatient. She is on a large dose of fentanyl which is being watched by her pain management doctor and I will not change the pain medications at this time. However, there are a colic instructions are given. She should return for any worsening in pain, fevers, vomiting, and as needed. She should follow-up with Dr. Pritchard. The plan was discussed with her and she states understanding. Data Data Last Documented VS Vital Signs Date Time Temp Pulse Resp B/P (MAP) Pulse Ox O2 Delivery O2 Flow Rate FiO2 07/17/17 15:56 89 17 107/67 (80) 100 Room Air 07/17/17 10:06 97.7 Orders Orders Complete Blood Count With Diff (07/17/17 10:26) Comprehensive Metabolic Panel (07/17/17 10:26) Lipase (07/17/17 10:26) Urinalysis - C+S If Indicated (07/17/17 10:26) Ct Abd/Pel W Iv Contrast(Rout) (07/17/17 10:26) Iv Access Insert/Monitor (07/17/17 10:26) Ecg Monitoring (07/17/17 10:26) NPO (07/17/17 10:26) Ondansetron Inj (Zofran Inj) (07/17/17 10:30) Sodium Chlor 0.9% 1000 Ml Inj (Ns 1000 M (07/17/17 10:26) Ed Urine Pregnancytest Poc (07/17/17 10:26) Electrocardiogram (07/17/17 10:30) Creatine Kinase (Cpk) (07/17/17 10:30) Troponin I (07/17/17 10:30) Urine Culture (07/17/17 10:50) Iohexol 350 Inj (Omnipaque 350 Inj) (07/17/17 12:42) Morphine Inj (Morphine Inj) (07/17/17 16:00) Piperacil-Tazo 3.375 Gm Premix (Zosyn 3. (07/17/17 16:15) Ed Discharge Order (07/17/17 16:16) Labs Laboratory Tests Test 07/17/17 10:39 07/17/17 10:50 White Blood Count 8.4 TH/MM3 Red Blood Count 4.71 MIL/MM3 Hemoglobin 12.4 GM/DL Hematocrit 37.9 % Mean Corpuscular Volume 80.5 FL Mean Corpuscular Hemoglobin 26.3 PG Mean Corpuscular Hemoglobin Concent 32.7 % Red Cell Distribution Width 16.1 % Platelet Count 252 TH/MM3 Mean Platelet Volume 8.0 FL Neutrophils (%) (Auto) 77.6 % Lymphocytes (%) (Auto) 14.3 % Monocytes (%) (Auto) 6.1 % Eosinophils (%) (Auto) 1.9 % Basophils (%) (Auto) 0.1 % Neutrophils # (Auto) 6.5 TH/MM3 Lymphocytes # (Auto) 1.2 TH/MM3 Monocytes # (Auto) 0.5 TH/MM3 Eosinophils # (Auto) 0.2 TH/MM3 Basophils # (Auto) 0.0 TH/MM3 CBC Comment DIFF FINAL Differential Comment Blood Urea Nitrogen 12 MG/DL Creatinine 1.02 MG/DL Random Glucose 102 MG/DL Total Protein 8.6 GM/DL Albumin 3.8 GM/DL Calcium Level 8.9 MG/DL Alkaline Phosphatase 197 U/L Aspartate Amino Transf (AST/SGOT) 37 U/L Alanine Aminotransferase (ALT/SGPT) 105 U/L Total Bilirubin 0.7 MG/DL Sodium Level 136 MEQ/L Potassium Level 3.4 MEQ/L Chloride Level 102 MEQ/L Carbon Dioxide Level 27.6 MEQ/L Anion Gap 6 MEQ/L Estimat Glomerular Filtration Rate 58 ML/MIN Total Creatine Kinase 34 U/L Troponin I LESS THAN 0.02 NG/ML Lipase 87 U/L Urine Color DARK-BROWN Urine Turbidity CLOUDY Urine pH 6.0 Urine Specific Kimberly 1.035 Urine Protein 100 mg/dL Urine Glucose (UA) 70 mg/dL Urine Ketones 10 mg/dL Urine Occult Blood MOD Urine Nitrite NEG Urine Bilirubin NEG Urine Urobilinogen 4.0 MG/DL Urine Leukocyte Esterase LARGE Urine RBC 25 /hpf Urine WBC /hpf Urine Squamous Epithelial Cells 20 /hpf Urine Bacteria OCC /hpf Urine Hyaline Casts 7 /lpf Urine Mucus MANY /lpf Microscopic Urinalysis Comment CULTURE INDICATED MDM Medical Record Reviewed: Yes Supervised Visit with MARCO ANTONIO: Yes Diagnosis Primary Impression: Acute cholecystitis Additional Impression: Urinary tract infection Qualified Codes: N39.0 - Urinary tract infection, site not specified Referrals: Blade Pritchard MD General Surgeon Primary Care Physician Patient Instructions: General Instructions, Biliary Colic (ED), Urinary Tract Infection in Women (ED) Additional Instruction: Antibiotics as prescribed Follow-up with Dr. Pritchard, general surgeon; his contact information is in her discharge instructions; call his office to make an appointment for follow-up Or follow up with general surgeon of choice Follow-up with primary care provider Return to the emergency department immediately with worsening of symptoms Scripts Amoxicillin-Clavulanate (Augmentin) 875-125 Mg Tab 1 TAB PO BID for Infection for 10 Days, #20 TAB 0 Refills Prov: Gia Clark 07/17/17 Disposition: 01 DISCHARGE HOME Condition: Stable Adriana Gonzalez MD Jul 17, 2017 16:46
[2017-07-23] MEDS ORDERED: LIPI10TA PO (07:50)
== END 2017-07-17 17:20 | disposition home or self-care (01) ==
LOC: NEPD 10:05
DX: K81.0 Acute cholecystitis (principal); N39.0 Urinary tract infection, site not specified; B96.20 Unspecified Escherichia coli [E. coli] as the cause of diseases classified elsewhere; R07.9 Chest pain, unspecified; E78.5 Hyperlipidemia, unspecified; K21.9 Gastro-esophageal reflux disease without esophagitis; M19.90 Unspecified osteoarthritis, unspecified site; F32.9 Major depressive disorder, single episode, unspecified; Z79.899 Other long term (current) drug therapy
CPT/HCPCS: 74177; 80053; 81001; 82550; 83690; 84484; 84703; 85025; 87077; 87086; 87186; 93005; 96361; 96365; 96375; 99285; J2405; J2543; J7030; Q9967

== ENCOUNTER → 2017-07-23 | Day surgery (SDC) | payer OTHER ==
[~2017-07-23] VITALS: Ht 154.9 cm; Wt 57.8 kg
[~2017-07-23] MED LIST changes: +ACETAMINOPHEN 1000 MG/100 ML 100 ML IV SCH; +ACETAMINOPHEN/HYDROcodone 325 MG/10 MG TAB PO PRN; +AUGM875T3 PO; +BUPIVACAINE/EPINEPHRINE 0.25% PF 30 ML VIAL ONE; +CHLORHEXIDINE GLUCONATE 2 % 1 PACK (2 CLOTHS) TOPICAL PRN; +DEXAMETHASONE SOD PHOS 4 MG/ML VIAL IV ONE; +DO NOT ADM ANY ANTICOAGULANT DRUGS PRN; +ESMOLOL HCL 100 MG/10 ML VIAL IV ONE; +GLYCOPYRROLATE 1 MG/5 ML SYRINGE IV PUSH ONE; +HYDROmorphone HCL PF 1 MG/ML VIAL IV PRN; +HYDROmorphone HCL PF 2 MG/ML VIAL ONE; +KETOROLAC TROMETHAMINE 30 MG/ML (IVP) VIAL IV PUSH ONE; +LACTATED RINGER'S 1000 ML IV PRN; +LIDOCAINE HCL 1% PF 5 ML SYRINGE OTHER ONE; +LIPI10TA PO; +METOPROLOL TARTRATE 25 MG TAB PO PRN; +NEOSTIGMINE 5 MG/5 ML SYRINGE IV PUSH ONE; +ONDANSETRON HCL 4 MG/2 ML VIAL IV PRN; +ONDANSETRON HCL 4 MG/2 ML VIAL IV PUSH ONE; +POVIDONE IODINE 5% (ANTISEPSIS KIT) 4 APPLICATIONS EACH NARE PRN; +ROCURONIUM INJ 50 MG/5 ML SYRINGE IV PUSH ONE; +SODIUM CHLORID 0.9% 500 ML IV PRN; +VANCOMYCIN HCL 1000 MG ON-CALL/NS 250 ML IV SCH; +ceFAZolin 1,000 MG/NS 100 ML IV SCH; +diphenhydrAMINE HCL 50 MG/ML VIAL ONE
[2017-07-23 08:14] LABS: AUTOMATED NEUTROPHIL # 4.2 TH/MM3 (1.8-7.7); BASOPHIL % 0.6 % (0.0-2.0); EOSINOPHIL # 0.3 TH/MM3 (0-0.4); EOSINOPHIL % 5.2 % (0.0-4.0); HEMATOCRIT 33.1 % (35.0-46.0); HEMO FLAGS DIFF FINAL; LYMPH % 18.9 % (9.0-44.0); LYMPHOCYTE # 1.1 TH/MM3 (1.0-4.8); MEAN CELL VOLUME 80.1 FL (80.0-100.0); MEAN CORPUSCULAR HEMOGLOBIN 26.3 PG (27.0-34.0); MEAN CORPUSCULAR HGB CONC 32.8 % (32.0-36.0); MONO % 4.4 % (0.0-8.0); NEUT % 70.9 % (16.0-70.0); PLATELET COUNT 333 TH/MM3 (150-450); RED BLOOD COUNT 4.13 MIL/MM3 (4.00-5.30); RED CELL DISTRIBUTION WIDTH 15.6 % (11.6-17.2)
[2017-07-23 08:32] LABS: BICARBONATE 26.8 MEQ/L (21.0-32.0); POTASSIUM 3.8 MEQ/L (3.5-5.1)
[2017-07-23 08:34] LABS: INDIRECT BILIRUBIN 0.2 MG/DL (0.0-0.8); TOTAL BILIRUBIN ADULT 0.3 MG/DL (0.2-1.0)
--- NOTE | 2017-07-23 11:49 | HHI.PR ---
cc: lBade Pritchard MD Immediate Post Op Note Procedure Date: Jul 23, 2017 Pre Op Diagnosis: Acute Cholecystitis with dilated CBD Post Op Diagnosis: Same Surgeon: Blade Pritchard Design Eng(s): JAMIE Polk Procedure: Laparoscopic cholecystectomy with intraoperative cholangiogram with intraoperative use of fluoroscopy Primary repair umbilical hernia Findings: Severe, acute cholecystitis Complications: None Specimen(s) removed: Gallbladder and stones to pathology Estimated blood loss: 200 ml Anesthesia: General Drains: None IVF (2000 ml) Patient to: PACU Patient Condition: Good Date/Time of Procedure: SEE SURGICAL CARE RECORD Blade Pritchard MD Jul 23, 2017 11:49
--- NOTE | 2017-07-23 11:50 | RADRPT ---
EXAM DATE/TIME: 07/23/2017 10:36 [facility] COMPARISON: No previous studies available for comparison. INDICATIONS : Cholecystitis. FLUORO TIME: 0.3 minutes IMAGE COUNT: 1 MEDICAL HISTORY : Cholecystitis. SURGICAL HISTORY : None. ENCOUNTER: Initial ACUITY: 1 day PAIN SCORE: Non-responsive. LOCATION: Right upper quadrant PROCEDURE: CHOLANGIOGRAM, OPERATIVE Intraoperative angiogram reveals free flow of contrast into the duodenum. Single filling defect at j unction of right and left hepatic ducts with normal size common duct. This may only be air. Followu p as necessary. CONCLUSION: Single 3-4 mm defect possible common duct as described above.. Jayesh Stanford MD FACR on July 23, 2017 at 11:45 Board Certified Radiologist. This report was verified electronically.
[2017-07-23 13:00] VITALS: BP 126/79; PULSE 88; RESP 18; TEMP 98.2; O2SAT 100
--- NOTE | 2017-07-23 13:26 | MP ---
cc: CCList DATE OF SURGERY 07/23/2017 PROCEDURE 1. Laparoscopic cholecystectomy with intraoperative cholangiogram with intraoperative use of fluoroscopy. 2. Primary repair of umbilical hernia. PREOPERATIVE DIAGNOSIS Acute cholecystitis POSTOPERATIVE DIAGNOSIS Acute cholecystitis with umbilical hernia, incarcerated. PROCEDURE IN DETAIL The patient was taken to the operating room and placed on the operating table in the supine position. After an adequate level of general endotracheal anesthesia was achieved, the abdomen was prepped and draped in the usual fashion. Time-out was taken confirming the correct patient, site and procedure to be performed. Skin and subcutaneous tissue was infiltrated with local anesthetic and an incision made in the umbilicus. Preperitoneal fat was noted and this was reduced into the abdominal cavity after dissecting it from the surrounding structures including the umbilical skin. When this was reduced into the abdominal cavity, the defect was too small to place a trocar and thus it was increased sharply with the knife. The peritoneal cavity was then directly visualized and a 12 mm balloon trocar was inserted and the balloon inflated. The abdomen was insufflated. The patient was placed in reverse Trendelenburg position. Three 5 mm trocars were then placed with the first to the right of falciform ligament and second and third in the right subcostal region. All entered the abdominal cavity under direct vision uneventfully. The gallbladder appeared to be grossly inflamed and at this point it was then punctured with an aspirating needle and approximately 90 cc of green fluid was aspirated. This allowed for the gallbladder to be decompressed and was able to be grasped with a grasping forceps. Omental tissue was then bluntly taken down off of the edge of the gallbladder and the gallbladder fundus was retracted up and over the dome of the liver. The cystic duct infundibular junction, cystic artery were then both circumferentially dissected. The cystic artery was doubly clipped proximally, singly clipped on the gallbladder side and divided. The cystic duct was then clipped on the gallbladder side and a cystic ductotomy was made. Cholangiogram was obtained as the patient had a dilated common bile duct and slightly elevated liver function tests. The cholangiocatheter was brought in via separate stab incision and secured in the cystic duct with a clip. Full strength dye was utilized under real time fluoroscopy to obtain a cholangiogram. There was good filling of the common bile duct with eventual filling of the duodenum. There was excellent backfilling of the common hepatic duct as well as left and right hepatic ducts and hepatic radicals. All of the duct appeared to be slightly dilated. However, on real time fluoro, there did not appear to be any filling defects or stones distally. The cholangiocatheter was removed and the cystic duct was doubly clipped distally and divided. The cystic artery was further secured with a third clip as one of the clips appeared to be loose and this was removed. There was a total of three 5 mm clips placed on the cystic artery stump. At this point, the gallbladder was dissected off of the liver bed with electrodissection. The gallbladder was placed into an EndoCatch device and removed via the umbilical port while observing via the upper 5 mm trocar site. The umbilical incision needed to be opened slightly to allow for removal of the gallbladder. The specimen was passed off the table. The camera was once again placed in via the umbilical port and the upper abdomen visualized. Two small bleeding points on the liver bed were made hemostatic with electrocautery. The cystic artery stump and cystic duct stump were both reexamined and seen to be clean and dry. After all irrigation was aspirated and hemostasis was assured, insufflation was discontinued. The upper abdominal trocars were removed under direct vision. No bleeding was noted from the trocar sites or the cholangiocatheter site. The laparoscope and umbilical port were then removed. The fascia was closed in the umbilicus with both zero and #1 Prolene suture as the patient had previous hernia and the defect was opened slightly. This was repaired primarily with a longitudinal interrupted Prolene. When this was completed, the remaining local anesthetic was injected into each of the trocar sites with the predominant site the umbilicus. The skin was closed at all sites with 4-0 Vicryl in an interrupted buried fashion except for the cholangiocatheter site. All sites were dressed with Steri-Strips. The patient was extubated and taken back to the recovery room in stable condition. She tolerated the procedure well. MD ADALGISA Gonzalez/JAH /11:56 AM /1:11 PM
--- NOTE | 2017-07-23 14:29 | EKG ---
Date Performed: 07/23/2017 Time Performed: 07:18:08 PTAGE: 47 years EKG: Sinus rhythm NORMAL ECG Compared to prior tracing no significant change PREVIOUS TRACING : 07/17/2017 11.35 DOCTOR: Evy Andrea Interpretating Date/Time 07/23/2017 14:25:32
== END | disposition home or self-care (01) ==
LOC: HSDC 06:56
PROVIDERS: ATTEND Surgery Trauma Surgery
DX: K80.12 Calculus of gallbladder with acute and chronic cholecystitis without obstruction (principal); K42.0 Umbilical hernia with obstruction, without gangrene; E78.5 Hyperlipidemia, unspecified; K21.9 Gastro-esophageal reflux disease without esophagitis; Z01.810 Encounter for preprocedural cardiovascular examination
CPT/HCPCS: 00790; 47563; 49585; 74300; 80048; 80076; 85025; 88304; 93005; J0131; J0690; J1100; J1170; J1200; J1885; J2405; J2710; J3010; J3370; J7050; J7120